=== PATIENT | female | born 1940 | race Caucasian/White ===

== ENCOUNTER 2019-02-06 11:38 | Outpatient (CLI) | payer MEDICARE, OTHER ==
--- NOTE | 2019-02-03 09:07 | NUR ---
UNABLE TO SPEACK TP PT HER LINE WAS BUSY
[~2019-02-06] VITALS: Ht 160 cm; Wt 73.6 kg
[2019-02-06] VITALS (7 sets, daily range): BP systolic 141–170; BP diastolic 66–121; PULSE 59–70
[~2019-02-06 11:38] MED LIST: ADVAIR 250/28 DISKU1 IH; ALLOPURINOL300 MG PO; DETROL LA4 MG PO; DIFLUCAN 100MG100 MG PO; FLECTOR1.3% TP; LASIX40 MG PO; LUNESTA3 MG PO; MICARDIS80 MG PO; MIRALAX17 GM/DOSE PO; NASONEX0.05 MG/AC NS; OS CAL; OXYCONTIN PO; PERCOCET 325 MG1 TA2 PO; SAVELLA100 MG PO; SKELAXIN 800MG800 MG PO; SYNTHROID0.05 MG PO; TESSALON PERLE200 MG PO; VENTOLIN0.09 MG IH; VIT B12; XANAX0.25 MG PO; ZYRTEC 10MG10 MG PO; [UNRECOGNIZED DRUG - OTHER]
--- NOTE | 2019-02-06 15:20 | NUR ---
Pt rolled to side to visualize puncture site to back, site clean and dry with clean dry bandaid covering site. sling positioned under patient and she was lifted to wheelchair. Pt satting 90% on room air, daughter is aware,. pt denies any sob or diff breathing, some wheezing noted, pt notes has duonebs she can be given at the facility where she is living. Pt and daughter escorted to exit where a transporter from her assisted living facility is waiting.
== END 2019-02-06 15:42 | disposition home or self-care (01) ==
LOC: COL.RAD 11:38
DX: M53.84 Other specified dorsopathies, thoracic region (principal); M48.061 Spinal stenosis, lumbar region without neurogenic claudication; M51.26 Other intervertebral disc displacement, lumbar region; M47.816 Spondylosis without myelopathy or radiculopathy, lumbar region; G11.4 Hereditary spastic paraplegia; Z98.890 Other specified postprocedural states
CPT/HCPCS: Q9965